=== PATIENT | female | born 1990 | race Caucasian/White ===

== ENCOUNTER 2019-01-27 11:29 | Day surgery (SDC) | payer OTHER ==
[2019-01-27] MEDS ORDERED: PROPOFOL 20 ML (13:08)
[2019-01-27] MEDS ORDERED: NEOSTIGMINE 3 MG/3 ML SYRINGE ×3 (13:08→14:16)
[2019-01-27] MEDS ORDERED: SUCCINYLCHOLINE CHLORIDE 100 MG/5 ML SYG IV (13:08)
[2019-01-27] MEDS ORDERED: GLYCOPYRROLATE 0.4 MG INJ ×2 (13:08→13:12)
[2019-01-27] MEDS ORDERED: ROCURONIUM 50 MG INJ (13:08)
[2019-01-27] MEDS ORDERED: LIDOCAINE 2% (SDV) 5 ML INJ (13:08)
[2019-01-27] MEDS ORDERED: ONDANSETRON 4 MG INJ (14:16)
[2019-01-27] MEDS ORDERED: METOCLOPRAMIDE 10 MG INJ (14:17)
[2019-01-27] MEDS: LIDOCAINE 1%/EPI (1:100,000) (MDV) 20 ML (14:23)
[2019-01-27] MEDS: OXYMETAZOLINE 0.05% 15 ML NAS SPRAY NASAL (14:24)
[2019-01-27] MEDS ORDERED: MIDAZOLAM 1 MG/ML 2 ML INJ IV (14:30)
[2019-01-27] MEDS ORDERED: MEPERIDINE 25 MG INJ IV (14:30)
[2019-01-27] MEDS ORDERED: DIPHENHYDRAMINE 50 MG INJ IV (14:30)
[2019-01-27] MEDS ORDERED: OXYCODONE/ACETAMINOPHEN (5/325) TAB PO ×2 (14:30)
[2019-01-27] MEDS ORDERED: FENTAnyl 50 MCG/ML VIAL IV ×2 (14:30)
[2019-01-27] MEDS ORDERED: HYDROmorphONE 1 MG/5 ML IV SYRINGE IV ×3 (14:30)
[2019-01-27] MEDS: FENTAnyl 50 MCG/ML VIAL IV (15:21)
[2019-01-27] MEDS: METOCLOPRAMIDE 10 MG INJ IV (15:21)
[2019-01-27] MEDS: ONDANSETRON 4 MG INJ IV (16:04)
== END 2019-01-27 17:53 | disposition home or self-care (01) ==
LOC: SDS 11:29
DX: J34.2 Deviated nasal septum (principal); J34.3 Hypertrophy of nasal turbinates; F12.90 Cannabis use, unspecified, uncomplicated
CPT/HCPCS: 30140; 88300